=== PATIENT | male | born 1960 | race Caucasian/White ===

== ENCOUNTER 2023-05-25 16:05 | Emergency (ER) | payer BC ==
[~2023-05-25] VITALS: Ht 172.7 cm; Wt 81.8 kg
[2023-05-25 16:35] VITALS: BP 114/77; PULSE 65; RESP 18; O2SAT 98
[2023-05-25] MEDS ORDERED: TETanus/Pertussis (Acell)/Diphther VAC/PF (Tdap-Adult) 0.5ml syringe IMVAC ONE (16:45)
[2023-05-25] MEDS ORDERED: LIDOcaine 1% W/epiNEPHrine 1:100,000 20ml vial IJ ONE (16:45)
[2023-05-25 18:39] VITALS: TEMP 98
== END 2023-05-25 18:41 | disposition home or self-care (01) ==
LOC: ER 16:06
DX: S01.01XA Laceration without foreign body of scalp, initial encounter (principal); E78.00 Pure hypercholesterolemia, unspecified; I10 Essential (primary) hypertension; W22.8XXA Striking against or struck by other objects, initial encounter; Y93.89 Activity, other specified; Y92.89 Other specified places as the place of occurrence of the external cause; Y99.8 Other external cause status
CPT/HCPCS: 12002; 70250; 90715; 99283